=== PATIENT | female | born 1940 | race Caucasian/White ===

== ENCOUNTER 2018-02-11 18:52 | Inpatient (IN) | payer OTHER ==
[~2018-02-11] VITALS: Ht 144.8 cm; Wt 51.3 kg
[2018-02-11 18:52] VITALS: Ht 144.8 cm; Wt 51.3 kg
[2018-02-11 19:37] LABS: BASOPHIL % 0.2 % (0-2); PLATELET COUNT 138 x10^3mcL (130-400)
[2018-02-11] MEDS ORDERED: ASPIR LOW81 MG PO (19:38)
[2018-02-11] MEDS ORDERED: ALDACTONE25 MG PO (19:39)
[2018-02-11] MEDS ORDERED: LASIX40 MG PO (19:40)
[2018-02-11] MEDS ORDERED: FOL1 PO (19:40)
[2018-02-11] MEDS ORDERED: NOR5 PO (19:40)
[2018-02-11] MEDS ORDERED: PRAVASTATIN SOD40 M1 PO (19:41)
[2018-02-11] MEDS ORDERED: OSTERA TABLET1 EACH PO (19:41)
[2018-02-11] MEDS ORDERED: FERROUS SULFAT325 M2 PO (19:41)
[2018-02-11] MEDS ORDERED: CLARITIN10 MG PO (19:42)
[2018-02-11] MEDS ORDERED: PERMETHRIN5% TOP (19:42)
[2018-02-11 19:43] LABS: RED CELL DISTRIBUTION WIDTH 16.6 % (11.5-14.5)
[2018-02-11] MEDS ORDERED: [UNRECOGNIZED DRUG - CODE] TOP (19:43)
[2018-02-11 19:53] LABS: CALCIUM 7.9 mg/dL (8.5-10.1); CARBON DIOXIDE 19.6 mmol/L (21-32); CHLORIDE SERUM 106 mmol/L (98-107); CREATININE SERUM 1.4 mg/dL (0.6-1.0); GLUCOSE SERUM 115 mg/dL (74-106); POTASSIUM SERUM 4.5 mmol/L (3.5-5.1); SODIUM SERUM 139 mmol/L (136-145)
[2018-02-11 19:58] LABS: ALKALINE PHOSPHATASE 95 U/L (46-116); ALT/SGPT 46 U/L (14-59); AST/SGOT 68 U/L (15-37); BILIRUBIN TOTAL 1.69 mg/dL (0.20-1.00); LIPASE 96 IU/L (73-393); TOTAL PROTEIN, SERUM 6.2 g/dL (6.4-8.2)
[2018-02-11 19:59] LABS: ALBUMIN 3.2 g/dL (3.4-5.0)
[2018-02-11 21:51] VITALS: BP 113/62
[2018-02-12 00:26] LABS: microscopic required? YES; urine erythrocyte 3+ (NEGATIVE)
[2018-02-12 04:13] LABS: CALCIUM 8.2 mg/dL (8.5-10.1); CARBON DIOXIDE 25.2 mmol/L (21-32); CHLORIDE SERUM 105 mmol/L (98-107); CREATININE SERUM 1.4 mg/dL (0.6-1.0); GLUCOSE SERUM 96 mg/dL (74-106); MAGNESIUM 1.8 mg/dL (1.8-2.4); POTASSIUM SERUM 4.3 mmol/L (3.5-5.1); SODIUM SERUM 139 mmol/L (136-145)
[2018-02-12 04:19] LABS: BASOPHIL % 0.5 % (0-2); PLATELET COUNT 144 x10^3mcL (130-400)
[2018-02-12 04:20] LABS: RED CELL DISTRIBUTION WIDTH 15.9 % (11.5-14.5)
[2018-02-12 05:06] VITALS: BP 113/62
[2018-02-12 07:46] VITALS: BP 107/60
[2018-02-12 12:58] VITALS: BP 122/75
[2018-02-12 15:20] LABS: CALCIUM 8.5 mg/dL (8.5-10.1); CARBON DIOXIDE 20.4 mmol/L (21-32); CHLORIDE SERUM 100 mmol/L (98-107); CREATININE SERUM 1.5 mg/dL (0.6-1.0); GLUCOSE SERUM 117 mg/dL (74-106); POTASSIUM SERUM 4.1 mmol/L (3.5-5.1); SODIUM SERUM 132 mmol/L (136-145)
[2018-02-12 16:51] VITALS: BP 108/65
[2018-02-12 20:52] VITALS: BP 106/66
[2018-02-13 05:08] VITALS: BP 96/64
[2018-02-13 07:57] LABS: CALCIUM 7.9 mg/dL (8.5-10.1); CARBON DIOXIDE 24.5 mmol/L (21-32); CHLORIDE SERUM 101 mmol/L (98-107); CREATININE SERUM 1.5 mg/dL (0.6-1.0); GLUCOSE SERUM 81 mg/dL (74-106); MAGNESIUM 1.9 mg/dL (1.8-2.4); POTASSIUM SERUM 3.8 mmol/L (3.5-5.1); SODIUM SERUM 135 mmol/L (136-145)
[2018-02-13 08:14] LABS: BASOPHIL % 0.2 % (0-2)
[2018-02-13 08:24] LABS: PLATELET COUNT 113 x10^3mcL (130-400); RED CELL DISTRIBUTION WIDTH 15.3 % (11.5-14.5)
[2018-02-13 09:05] VITALS: BP 94/59
[2018-02-13] MEDS ORDERED: COR3 PO (12:33)
[2018-02-13] MEDS ORDERED: DOXYCYCLINE MO100 MG PO (12:36)
[2018-02-13 13:16] VITALS: BP 100/58
[2018-02-13 17:35] VITALS: BP 92/57
[2018-02-13 20:43] VITALS: BP 98/63
[2018-02-14 06:10] VITALS: BP 98/52
[2018-02-14 06:28] LABS: BASOPHIL % 0.2 % (0-2)
[2018-02-14 06:39] LABS: CALCIUM 8.3 mg/dL (8.5-10.1); CARBON DIOXIDE 24.7 mmol/L (21-32); CHLORIDE SERUM 98 mmol/L (98-107); CREATININE SERUM 1.9 mg/dL (0.6-1.0); GLUCOSE SERUM 97 mg/dL (74-106); MAGNESIUM 2.3 mg/dL (1.8-2.4); POTASSIUM SERUM 4.6 mmol/L (3.5-5.1); SODIUM SERUM 133 mmol/L (136-145)
[2018-02-14 06:41] LABS: PLATELET COUNT 112 x10^3mcL (130-400); RED CELL DISTRIBUTION WIDTH 16.1 % (11.5-14.5)
[2018-02-14 09:25] VITALS: BP 98/56
[2018-02-14 12:32] VITALS: BP 96/56
[2018-02-14 13:05] VITALS: BP 96/56
[2018-02-14 17:24] VITALS: BP 101/59
[2018-02-14 21:35] VITALS: BP 100/56
[2018-02-15 05:06] VITALS: BP 98/59
[2018-02-15 06:45] LABS: BASOPHIL % 0.1 % (0-2)
[2018-02-15 06:49] LABS: PLATELET COUNT 119 x10^3mcL (130-400); RED CELL DISTRIBUTION WIDTH 16.3 % (11.5-14.5)
[2018-02-15 07:06] LABS: CALCIUM 8.4 mg/dL (8.5-10.1); CARBON DIOXIDE 21.1 mmol/L (21-32); CHLORIDE SERUM 97 mmol/L (98-107); CREATININE SERUM 2.4 mg/dL (0.6-1.0); GLUCOSE SERUM 87 mg/dL (74-106); SODIUM SERUM 132 mmol/L (136-145)
[2018-02-15 08:27] VITALS: BP 102/58
[2018-02-15 12:46] VITALS: BP 97/54
[2018-02-15 15:25] VITALS: BP 97/54
[2018-02-15 15:57] VITALS: BP 102/59
== END 2018-02-15 19:26 | disposition hospice, home (50) | DRG 280 ==
LOC: ED 18:52 → DU 21:01
PROVIDERS: Emergency Medicine; Internal Medicine; Internal Medicine Nephrology; Internal Medicine Pulmonary Disease
DX: I50.43 Acute on chronic combined systolic (congestive) and diastolic (congestive) heart failure (principal); I21.A1 Myocardial infarction type 2; J96.01 Acute respiratory failure with hypoxia; N17.0 Acute kidney failure with tubular necrosis; N18.6 End stage renal disease; N39.0 Urinary tract infection, site not specified; I13.0 Hypertensive heart and chronic kidney disease with heart failure and stage 1 through stage 4 chronic kidney disease, or unspecified chronic kidney disease; E87.1 Hypo-osmolality and hyponatremia; I12.0 Hypertensive chronic kidney disease with stage 5 chronic kidney disease or end stage renal disease; I34.0 Nonrheumatic mitral (valve) insufficiency; J20.9 Acute bronchitis, unspecified; I25.10 Atherosclerotic heart disease of native coronary artery without angina pectoris; Z66 Do not resuscitate; Z99.81 Dependence on supplemental oxygen; Z68.23 Body mass index [BMI] 23.0-23.9, adult; Z95.5 Presence of coronary angioplasty implant and graft
CPT/HCPCS: 36600; 83880; J0696; J1644; J1940; J2405; J3475; J7050; Q0092